=== PATIENT | male | born 1990 | race Caucasian/White ===

== ENCOUNTER 2017-05-17 06:37 | Emergency (ER) | payer OTHER ==
--- NOTE | 2017-05-17 07:33 | XR ---
EXAMINATION TYPE: XR chest 2V DATE OF EXAM: 05/17/2017 COMPARISON: 12/02/2012 INDICATION: Pain TECHNIQUE: Frontal and lateral views of the chest are obtained. FINDINGS: The heart size is normal. The pulmonary vasculature is normal. The lungs are clear. IMPRESSION: 1. No acute pulmonary process.
[2017-05-17] MEDS ORDERED: IPRATROPIUM-ALBUTEROL 3 ML NEB INHALATION STA (07:37)
[2017-05-17] MEDS ORDERED: methylPREDNISolone SOD SUCCI 125 MG/2 ML VIAL IM ONE (07:37)
--- NOTE | 2017-05-17 07:39 | ED ---
URI HPI - General Chief Complaint: Upper Respiratory Infection Stated Complaint: ÓSCAR Time Seen by Provider: 05/17/17 07:00 Source: patient, RN notes reviewed Mode of arrival: wheelchair Limitations: no limitations - History of Present Illness Initial Comments: 27-year-old male presents emergency from chief complaint cough congestion for the last 3-4 days. Patient states she has a history asthma is having to do shortness of breath. Patient states she is using his inhaler does get relief but shortly after wheezing returns. Patient states that he tried some over-the- counter cough and cold medication no relief. Patient states she is visiting from [place] currently. Patient states he has multiple sick contacts at home. Patient reports no fever no chills. Patient states that he just aches all over denies any nausea and diarrhea constipation. - Related Data Previous Rx's Medication Instructions Recorded Albuterol Inhaler [Ventolin Hfa 1 - 2 puff INHALATION Q4-6H PRN #1 11/21/13 Inhaler] inhaler Albuterol Nebulized [Ventolin 2.5 mg INHALATION Q4H PRN 10 Days 11/21/13 Nebulized] nebu predniSONE 60 mg PO DAILY 5 Days tab 11/21/13 Azithromycin [Zithromax Z-pack] 0 mg PO DIRECTED #1 pack 05/17/17 predniSONE 50 mg PO DAILY #5 tab 05/17/17 Allergies Allergy/AdvReac Type Severity Reaction Status Date / Time No Known Allergies Allergy Verified 06/21/13 19:10 Review of Systems ROS Statement: Those systems with pertinent positive or pertinent negative responses have been documented in the HPI. ROS Other: All systems not noted in ROS Statement are negative. Past Medical History Past Medical History: Asthma History of Any Multi-Drug Resistant Organisms: None Reported Past Surgical History: No Surgical Hx Reported Past Psychological History: No Psychological Hx Reported Smoking Status: Former smoker Past Alcohol Use History: Occasional Past Drug Use History: None Reported, Marijuana General Exam Limitations: no limitations General appearance: alert, in no apparent distress Head exam: Present: atraumatic, normocephalic, normal inspection Eye exam: Present: normal appearance, PERRL, EOMI. Absent: scleral icterus, conjunctival injection, periorbital swelling ENT exam: Present: mucous membranes moist, TM's normal bilaterally, normal external ear exam. Absent: normal oropharynx (Postnasal drainage) Neck exam: Present: normal inspection, full ROM. Absent: tenderness, meningismus, lymphadenopathy Respiratory exam: Present: wheezes. Absent: normal lung sounds bilaterally, respiratory distress, rales, rhonchi, stridor Cardiovascular Exam: Present: regular rate, normal rhythm, normal heart sounds. 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 Patient chest x- ray reviewed no acute abnormality. Patient's influenza is negative. Patient we treated for acute asthmatic bronchitis. Patient was given injection of Solu- Medrol, DuoNeb treatment. Patient be discharged on azithromycin, prednisone and continuation of albuterol inhaler. - Lab Data Lab Results 05/17/17 Range/Units 07:11 Influenza Type A RNA Not Detected (Not Detectd) Influenza Type B (PCR) Not Detected (Not Detectd) - EKG Data EKG Comments: EKG performed at 17:00 normal sinus rhythm with a rate of 87 OR 112 QRS 82 QT/ QTC 336/404 Disposition Clinical Impression: Asthmatic bronchitis Disposition: HOME SELF-CARE Condition: Stable Instructions: Bronchospasm (ED) Additional Instructions: Please return to the Emergency Department if symptoms worsen or any other concerns. Prescriptions: Azithromycin [Zithromax Z-pack] 0 mg PO DIRECTED #1 pack predniSONE 50 mg PO DAILY #5 tab Referrals: None,Stated [Primary Care Provider] - 1-2 days Time of Disposition: 07:41
[2017-05-17 08:03] VITALS: BP 149/83; PULSE 88; RESP 18; TEMP 98.1
== END 2017-05-17 08:02 | disposition home or self-care (01) ==
LOC: EC 06:37
DX: J45.909 Unspecified asthma, uncomplicated (principal); Z87.891 Personal history of nicotine dependence
CPT/HCPCS: 94640; 93005; 87502; 71046; 99284; 96372; J2930

== ENCOUNTER 2018-05-19 20:18 | Emergency (ER) | payer OTHER ==
[2018-05-19 20:43] VITALS: RESP 18; TEMP 98.5
[2018-05-19] MEDS ORDERED: ACETAMINOPHEN TAB 500 MG TAB PO STA (21:21)
[2018-05-19] MEDS ORDERED: IBUPROFEN 600 MG TAB PO STA (21:21)
[2018-05-19] MEDS ORDERED: predniSONE 50 MG TAB PO STA (21:21)
[2018-05-19] MEDS ORDERED: diphenhydrAMINE 50 MG CAP PO STA (21:21)
[2018-05-19] MEDS ORDERED: IPRATROPIUM-ALBUTEROL 3 ML NEB INHALATION STA (21:21)
--- NOTE | 2018-05-19 22:46 | ED ---
Headache HPI - General Mode of arrival: ambulatory Limitations: no limitations <Fina Hyatt - Last Filed: 05/20/18 03:08> <Mara Mathis - Last Filed: 05/20/18 07:20> - General Chief Complaint: Headache Stated Complaint: Migraines Time Seen by Provider: 05/19/18 21:07 - History of Present Illness Initial Comments: 28-year-old male patient presents to the emergency department today for evaluation of migraine headache. Patient states symptoms have been present since around noon. States that he does have history of migraine headache, they have been worsening in severity. Patient is also reporting new or congestion, drainage, and sore throat. Patient states his been going on for the last couple of months. Does have a history of hayfever and ALLERGIES but is not currently taking medications for this. He denies any blurred vision or double vision. States he does have light and sound sensitivity. Denies any nausea or vomiting. Denies any dizziness or weakness. Patient denies taking any medication for his symptoms. Patient denies any recent rash, fever, chills, cough, shortness breath, chest pain, abdominal pain, diarrhea, constipation, back pain, numbness, tingling, hematuria, dysuria, urinary urgency, urinary frequency, or any other complaints. (Fina Hyatt) - Related Data Previous Rx's Medication Instructions Recorded Albuterol Inhaler [Ventolin Hfa 1 - 2 puff INHALATION Q4-6H PRN #1 11/21/13 Inhaler] inhaler Albuterol Nebulized [Ventolin 2.5 mg INHALATION Q4H PRN 10 Days 11/21/13 Nebulized] nebu predniSONE 60 mg PO DAILY 5 Days tab 11/21/13 Azithromycin [Zithromax Z-pack] 0 mg PO DIRECTED #1 pack 05/17/17 predniSONE 50 mg PO DAILY #5 tab 05/17/17 Albuterol Sulfate [Proair Hfa] 1 - 2 puff INHALATION Q6HR PRN #1 05/19/18 inhaler predniSONE 50 mg PO DAILY #5 tablet 05/19/18 Allergies Allergy/AdvReac Type Severity Reaction Status Date / Time No Known Allergies Allergy Verified 06/21/13 19:10 Review of Systems ROS Other: All systems not noted in ROS Statement are negative. <Fina Hyatt - Last Filed: 05/20/18 03:08> ROS Other: All systems not noted in ROS Statement are negative. <Mara Mathis P - Last Filed: 05/20/18 07:20> ROS Statement: Those systems with pertinent positive or pertinent negative responses have been documented in the HPI. Past Medical History Past Medical History: Asthma History of Any Multi-Drug Resistant Organisms: None Reported Past Surgical History: No Surgical Hx Reported Past Psychological History: No Psychological Hx Reported Smoking Status: Current every day smoker Past Alcohol Use History: Occasional Past Drug Use History: Marijuana <Fina Hyatt M - Last Filed: 05/20/18 03:08> General Exam Limitations: no limitations General appearance: alert, in no apparent distress, other (This is a well-devel oped, well-nourished adult male patient in no acute distress. Vital signs upon presentation are temperature 98.5F, pulse 78, respirations 18, blood pressure 143/77, pulse ox 100% on room air.) Eye exam: Present: normal appearance, PERRL, EOMI. Absent: scleral icterus, conjunctival injection, nystagmus, periorbital swelling ENT exam: Present: normal exam, normal oropharynx, mucous membranes moist, TM's normal bilaterally Neck exam: Present: normal inspection. Absent: tenderness, meningismus, lymphadenopathy Respiratory exam: Present: normal lung sounds bilaterally. Absent: respiratory distress, wheezes, rales, rhonchi, stridor Cardiovascular Exam: Present: regular rate, normal rhythm, normal heart sounds. Absent: systolic murmur, diastolic murmur, rubs, gallop, clicks GI/Abdominal exam: Present: soft, normal bowel sounds. Absent: distended, tenderness, guarding, rebound, rigid Neurological exam: Present: alert, oriented X3, CN II-XII intact, other (Strength in all 4 extremities is 5/5.) Psychiatric exam: Present: normal affect, normal mood Skin exam: Present: warm, dry, intact, normal color. Absent: rash <Fina Hyatt M - Last Filed: 05/20/18 03:08> Course Vital Signs 05/19/18 05/19/18 05/19/18 20:39 21:56 22:05 Temperature 98.5 F Pulse Rate 78 80 72 Respiratory 18 Rate Blood Pressure 143/77 O2 Sat by Pulse 100 Oximetry 05/19/18 23:02 Temperature Pulse Rate 78 Respiratory 18 Rate Blood Pressure 132/87 O2 Sat by Pulse 98 Oximetry Medical Decision Making <Fina Hyatt - Last Filed: 05/20/18 03:08> <Mara Mathis - Last Filed: 05/20/18 07:20> - Medical Decision Making 28-year-old male patient presents to the emergency department today for evaluation of headache, nasal drainage, sore throat. Physical examination is unremarkable. Patient is neurologically intact with no focal deficits. Patient was given oral medications including Tylenol, Motrin, Benadryl, and prednisone. He also has history of asthma and did have wheezing upon examination so we did administer a DuoNeb breathing treatment. Upon reevaluation patient reports complete resolution of headache. States he is feeling better. He'll be discharged home at this time is a prescription for Pro Air inhaler as well as prednisone. He is instructed to follow-up with his primary care physician for recheck in 1-2 days. Return parameters were discussed in detail. He verbalizes understanding and agrees with this plan (Fina Hyatt) I was available for consultation in the emergency department. The history and physical exam were done by the midlevel provider. I was consulted for this patient's care. I reviewed the case with the midlevel provider and based on their presentation of the patient, I agree with the assessment, medical decision making and plan of care as documented. (Mara Mathis) Disposition Is patient prescribed a controlled substance at d/c from ED?: No Time of Disposition: 22:46 <Fina Hyatt - Last Filed: 05/20/18 03:08> <Mara Mathis - Last Filed: 05/20/18 07:20> Clinical Impression: Acute headache, Hayfever, Asthma Disposition: HOME SELF-CARE Condition: Good Instructions (If sedation given, give patient instructions): Asthma (ED), Acute Headache (ED) Additional Instructions: Take medications as directed. Consider using an [id number] Claritin or Zyrtec or the generic versions of these to aid with relief of ALLERGIES. Follow-up through primary care physician for recheck in 1-2 days. Return to the emergency department immediately for any new, worsening, or concerning symptoms. Prescriptions: predniSONE 50 mg PO DAILY #5 tablet Albuterol Sulfate [Proair Hfa] 1 - 2 puff INHALATION Q6HR PRN #1 inhaler PRN Reason: Shortness Of Breath Referrals: None,Stated [Primary Care Provider] - 1-2 days
[2018-05-19 23:04] VITALS: BP 132/87; PULSE 78
== END 2018-05-19 23:02 | disposition home or self-care (01) ==
LOC: EC 20:18
DX: J45.909 Unspecified asthma, uncomplicated (principal); R51 Headache; F17.200 Nicotine dependence, unspecified, uncomplicated; Z86.69 Personal history of other diseases of the nervous system and sense organs
CPT/HCPCS: 94640; 99283; J7512

== ENCOUNTER 2018-09-20 06:43 | Emergency (ER) | payer OTHER ==
[2018-09-20 06:51] VITALS: RESP 18
[2018-09-20] MEDS ORDERED: METOCLOPRAMIDE 5 MG/ML 2 ML VIAL IVP STA (07:00)
[2018-09-20] MEDS ORDERED: SODIUM CHLORIDE 0.9% 1,000 ML IV STA ×2 (07:00)
[2018-09-20] MEDS ORDERED: diphenhydrAMINE 50 MG/ML 1 ML VIAL IVP STA (07:00)
[2018-09-20] MEDS ORDERED: KETOROLAC 30 MG/ML 1 ML VIAL IVP STA (07:00)
--- NOTE | 2018-09-20 07:03 | ED ---
Headache HPI - General Chief Complaint: Headache Stated Complaint: Headache Time Seen by Provider: 09/20/18 06:52 Source: RN notes reviewed, old records reviewed Mode of arrival: ambulatory Limitations: no limitations - History of Present Illness Initial Comments: This is a 28-year-old male presents for his pharmacy today with complaints of migraine-like headache. Symptoms started 3 hours ago. Patient reports that he's had migraine headaches daily for the past few months. Patient states that he took some improvement today with no relief. Patient reports that he woke up with vomiting. Patient states he has had the similar migraines and usually causes him to have blurred vision. The headache starts behind the eyes, redness around the scalp into the head and neck. Patient has had no fevers or chills. He denies any cough chest pain or other symptoms. He did have one episode of vomiting. - Related Data Home Medications Medication Instructions Recorded Confirmed Albuterol Nebulized [Ventolin 2.5 mg INHALATION RT-Q6H PRN 09/20/18 09/20/18 Nebulized] Multivitamins, Thera [Multivitamin 1 tab PO DAILY 09/20/18 09/20/18 (formulary)] Previous Rx's Medication Instructions Recorded Ketorolac [Toradol] 10 mg PO Q6HR #12 tab 09/20/18 Metoclopramide [Reglan] 10 mg PO ACHS #12 tab 09/20/18 Allergies Allergy/AdvReac Type Severity Reaction Status Date / Time No Known Allergies Allergy Verified 09/20/18 08:06 Review of Systems ROS Statement: Those systems with pertinent positive or pertinent negative responses have been documented in the HPI. ROS Other: All systems not noted in ROS Statement are negative. Past Medical History Past Medical History: Asthma History of Any Multi-Drug Resistant Organisms: None Reported Past Surgical History: No Surgical Hx Reported Additional Past Surgical History / Comment(s): pylonidal cyst Past Psychological History: No Psychological Hx Reported Smoking Status: Current every day smoker Past Alcohol Use History: Rare Past Drug Use History: Marijuana General Exam - General Exam Comments Initial Comments: 28-year-old male. Alert and oriented 3. No distress. Limitations: no limitations General appearance: alert, in no apparent distress Head exam: Present: atraumatic, normocephalic, normal inspection Eye exam: Present: normal appearance, PERRL, EOMI. Absent: scleral icterus, conjunctival injection, periorbital swelling ENT exam: Present: normal exam, mucous membranes moist Neck exam: Present: normal inspection Respiratory exam: Present: normal lung sounds bilaterally. Absent: respiratory distress, wheezes, rales, rhonchi, stridor Cardiovascular Exam: Present: regular rate, normal rhythm, normal heart sounds. Absent: systolic murmur, diastolic murmur, rubs, gallop, clicks GI/Abdominal exam: Present: soft, normal bowel sounds. Absent: distended, tenderness, guarding, rebound, rigid Extremities exam: Present: normal inspection, full ROM, normal capillary refill. Absent: tenderness, pedal edema, joint swelling, calf tenderness Back exam: Present: normal inspection Neurological exam: Present: alert, oriented X3, CN II-XII intact Psychiatric exam: Present: normal affect, normal mood Skin exam: Present: warm, dry, intact, normal color. Absent: rash Course Vital Signs 09/20/18 06:47 Temperature 98.1 F Pulse Rate 57 L Respiratory 18 Rate Blood Pressure 116/72 O2 Sat by Pulse 99 Oximetry Medical Decision Making - Medical Decision Making 28-year-old male presents today for evaluation for migraine-like headache. He has no neurological deficits. Otherwise appears well. He did have some episodes of vomiting. Patient given IV fluids, given migraine cocktail. On reevaluation is feeling much better states his headache is a 0 out of 10. Patient has been advised to follow-up with primary care physician possible neurology if migraines continue to keep persisting. Patient understands treatment plan will comply. Return parameters were discussed. - Lab Data Result diagrams: 09/20/18 07:11 09/20/18 07:11 Lab Results 09/20/18 09/20/18 Range/Units 07:11 07:11 WBC 8.5 (3.8-10.6) k/uL RBC 4.78 (4.30-5.90) m/uL Hgb 13.3 (13.0-17.5) gm/dL Hct 41.2 (39.0-53.0) % MCV 86.1 (80.0-100.0) fL MCH 27.8 (25.0-35.0) pg MCHC 32.3 (31.0-37.0) g/dL RDW 13.9 (11.5-15.5) % Plt Count 234 (150-450) k/uL Neutrophils % 60 % Lymphocytes % 28 % Monocytes % 5 % Eosinophils % 5 % Basophils % 0 % Neutrophils # 5.1 (1.3-7.7) k/uL Lymphocytes # 2.4 (1.0-4.8) k/uL Monocytes # 0.4 (0-1.0) k/uL Eosinophils # 0.4 (0-0.7) k/uL Basophils # 0.0 (0-0.2) k/uL Sodium 140 (137-145) mmol/L Potassium 4.5 (3.5-5.1) mmol/L Chloride 105 (98-107) mmol/L Carbon Dioxide 27 (22-30) mmol/L Anion Gap 8 mmol/L BUN 11 (9-20) mg/dL Creatinine 0.88 (0.66-1.25) mg/dL Est GFR (CKD-EPI)AfAm >90 (>60 ml/min/1.73 sqM) Est GFR (CKD-EPI)NonAf >90 (>60 ml/min/1.73 sqM) Glucose 98 (74-99) mg/dL Calcium 9.5 (8.4-10.2) mg/dL Disposition Clinical Impression: Migraine Disposition: HOME SELF-CARE Condition: Good Instructions (If sedation given, give patient instructions): Acute Headache (ED) Additional Instructions: Patient advised to have close follow-up with primary care physicians in neurology. Take medications as prescribed. Return to the emergency department if any alarming signs or symptoms occur. Prescriptions: Metoclopramide [Reglan] 10 mg PO ACHS #12 tab Ketorolac [Toradol] 10 mg PO Q6HR #12 tab Is patient prescribed a controlled substance at d/c from ED?: No Referrals: None,Stated [Primary Care Provider] - 1-2 days Janay Molina MD [STAFF PHYSICIAN] - 1-2 days Toma Vivar MD [Medical Doctor] - 1-2 days Time of Disposition: 08:10
[2018-09-20 07:22] LABS: Basophils % (A) 0 %; Eosinophils # (A) 0.4 k/uL (0-0.7); Eosinophils % (A) 5 %; HCT 41.2 % (39.0-53.0); HGB 13.3 gm/dL (13.0-17.5); Lymphocytes # (A) 2.4 k/uL (1.0-4.8); Lymphocytes % (A) 28 %; MCH 27.8 pg (25.0-35.0); MCHC 32.3 g/dL (31.0-37.0); MCV 86.1 fL (80.0-100.0); Mean Platelet Volume 7.3; Monocytes # (A) 0.4 k/uL (0-1.0); Monocytes % (A) 5 %; Neutrophils # (A) 5.1 k/uL (1.3-7.7); Neutrophils % (A) 60 %; Platelet Count 234 k/uL (150-450); RBC 4.78 m/uL (4.30-5.90); RDW 13.9 % (11.5-15.5); WBC 8.5 k/uL (3.8-10.6)
[2018-09-20 07:37] LABS: African American GFR (CKD) >90 (>60 ml/min/1.73 sqM); Anion Gap 8 mmol/L; Blood Urea Nitrogen 11 mg/dL (9-20); Calcium 9.5 mg/dL (8.4-10.2); Carbon Dioxide 27 mmol/L (22-30); Chloride 105 mmol/L (98-107); Glucose 98 mg/dL (74-99); Potassium 4.5 mmol/L (3.5-5.1); Sodium 140 mmol/L (137-145)
[2018-09-20 08:24] VITALS: BP 115/70; PULSE 70; TEMP 98
== END 2018-09-20 08:23 | disposition home or self-care (01) ==
LOC: EC 06:43
DX: G43.909 Migraine, unspecified, not intractable, without status migrainosus (principal); J45.909 Unspecified asthma, uncomplicated; F17.200 Nicotine dependence, unspecified, uncomplicated
CPT/HCPCS: 36415; 80048; 85025; 99284; 96374; 96375 ×2; 96361; J1200; J2765; J1885

== ENCOUNTER 2018-09-21 07:13 | Emergency (ER) | payer OTHER ==
[2018-09-21 07:21] VITALS: RESP 16
--- NOTE | 2018-09-21 07:31 | ED ---
Headache HPI - General Chief Complaint: Headache Stated Complaint: headache Time Seen by Provider: 09/21/18 07:15 Mode of arrival: ambulatory Limitations: no limitations - History of Present Illness Initial Comments: 28yo male with history of migraines presenting for treatment of migraine. Patient states that since March he has had an increase in the frequency of migraines. He denies any specific life style changes or thoughts to cause of onset. Patient states that for the past month the headaches have been persistent near daily. He states that they cause nausea and on occasion vomiting. Patient denies today being the worst headache, but states that he has not been able to sleep since 1AM when it woke him up. Patinet states this was similar to yesterday morning when he was awoken by the headache at 3:30AM. Patient states that after treatment yesterday he felt great, and planned on following up with neurology and he has discussed with Chyna BEDOLLA an outpatient MRI. Patient denies fevers, neck stiffness, vision loss, ataxia, speech changes, sensation deficits or weakness. Remaining ROS (-) Upon arrival patient appears well there are no signs of acute distress. - Related Data Home Medications Medication Instructions Recorded Confirmed Albuterol Nebulized [Ventolin 2.5 mg INHALATION RT-Q6H PRN 09/20/18 09/20/18 Nebulized] Multivitamins, Thera [Multivitamin 1 tab PO DAILY 09/20/18 09/20/18 (formulary)] Previous Rx's Medication Instructions Recorded Ketorolac [Toradol] 10 mg PO Q6HR #12 tab 09/20/18 Metoclopramide [Reglan] 10 mg PO ACHS #12 tab 09/20/18 Allergies Allergy/AdvReac Type Severity Reaction Status Date / Time No Known Allergies Allergy Verified 09/21/18 07:21 Review of Systems ROS Statement: Those systems with pertinent positive or pertinent negative responses have been documented in the HPI. ROS Other: All systems not noted in ROS Statement are negative. Past Medical History Past Medical History: Asthma History of Any Multi-Drug Resistant Organisms: None Reported Past Surgical History: No Surgical Hx Reported Additional Past Surgical History / Comment(s): pylonidal cyst Past Psychological History: No Psychological Hx Reported Smoking Status: Current every day smoker Past Alcohol Use History: Rare Past Drug Use History: Marijuana General Exam - General Exam Comments Initial Comments: General: The patient is awake and alert, in no distress, and does not appear acutely ill. Eye: +3 mm pupils are equal, round and reactive to light, extra-ocular movements are intact. No nystagmus. There is normal conjunctiva bilaterally. No signs of icterus. Ears, nose, mouth and throat: There are moist mucous membranes and no oral lesions. Neck: The neck is supple, there is no tenderness or JVD. Cardiovascular: There is a regular rate and rhythm. No murmur, rub or gallop is appreciated. Respiratory: Lungs are clear to auscultation, respirations are non-labored, breath sounds are equal. No wheezes, stridor, rales, or rhonchi. Gastrointestinal: Soft, non-distended, non-tender abdomen without masses or organomegaly noted. There is no rebound or guarding present. Musculoskeletal: Normal ROM, no tenderness. Strength 5/5. Sensation intact. Pulses equal bilaterally 2+. Neurological: A&O x 3. CN II-XII intact, memory intact to immediately, inter mediate and signaling project engineer recall. Able to follow simple verbal. Able to name a common objects. High quality, labial and lingual speech. Low quality posterior pharynx/larynx (ga) voice sounds. Able to express general knowledge. No hemineglect or inattention noted. Finger agnosia (-) and spatially oriented (identified L index finger touched R shoulder with L index finger).Light touch sensation intact of the UE and LE b/l. No visible bulk atrophy, hypertrophy, fasciculations, or myoclonus of the UE or LE b/l. Full PROM in UE and LE b/l. Bilateral muscle strength 5/5 of the UE and LE b/l. Finger to nose, finger to the examiners finger, and heel to herndon coordinated and accurate b/l. Coordinated and even demonstration of hand flip, finger to thumb, and toe tap b/l. Gait is coordinated and even in stride with tandem, toe and heel walk. (-) pronator drift. No nuchal rigidity. Skin: Skin is warm and dry and no rashes or lesions are noted. Psychiatric: Cooperative, appropriate mood & affect, normal judgment. Limitations: no limitations Course Vital Signs 09/21/18 07:19 Temperature 97.9 F Pulse Rate 58 L Respiratory 16 Rate Blood Pressure 122/71 O2 Sat by Pulse 99 Oximetry Medical Decision Making - Medical Decision Making 28-year-old male presenting for headache. History of migraines. Patient states there has been increasing frequency for the past 9 months. Nighttime awakening for the past month. No focal neurological deficits. No nuchal irritation signs on exam. Given the patient history concern for possible mass. CT obtained at this time revealing no obvious mass, or acute intracranial process. Patient treated symptomatically at this time. On reevaluation patient headache subsided. I feel patient is stable for discharge without patient neurology f/u. Recommend outpatient MRI. Patient discharged appearing well. Patient is agreeable with this plan of care. Disposition Clinical Impression: Headache Disposition: HOME SELF-CARE Condition: Good Instructions (If sedation given, give patient instructions): Acute Headache (ED) Additional Instructions: Please use medication as discussed. Please follow-up with family doctor in the next 2 days, recommend neurology referral, outpatient MRI. Please return to emergency room if the symptoms increase or worsen or for any other concerns. Is patient prescribed a controlled substance at d/c from ED?: No Referrals: None,Stated [Primary Care Provider] - 1-2 days [facility] [NON-STAFF] - 1-2 days Time of Disposition: 08:53
--- NOTE | 2018-09-21 07:59 | CT ---
EXAMINATION TYPE: CT brain wo con DATE OF EXAM: 09/21/2018 COMPARISON: NONE HISTORY: Headache CT DLP: 1099.4 mGycm. Automated Exposure Control for Dose Reduction was Utilized. TECHNIQUE: CT scan of the head is performed without contrast. FINDINGS: There is no acute intracranial hemorrhage, mass effect, or midline shift identified. The ventricles and sulci are within normal limits in size. The globes are intact. Mild mucosal thickeni ng is seen in the left maxillary sinus and ethmoid sinuses. Remainder the paranasal sinuses and masto id air cells are well aerated. IMPRESSION: No acute intracranial hemorrhage, mass effect, or midline shift is seen.
[2018-09-21] MEDS ORDERED: ONDANSETRON 4 MG/2 ML VIAL IVP STA (08:01)
[2018-09-21] MEDS ORDERED: KETOROLAC 30 MG/ML 1 ML VIAL IVP STA (08:01)
[2018-09-21] MEDS ORDERED: diphenhydrAMINE 50 MG/ML 1 ML VIAL IVP STA (08:01)
[2018-09-21] MEDS ORDERED: SODIUM CHLORIDE 0.9% 1,000 ML IV ONE (08:01)
[2018-09-21] MEDS ORDERED: IBUPROFEN 800 MG TAB PO STA (08:19)
[2018-09-21 09:04] VITALS: BP 138/73; PULSE 76; TEMP 98
== END 2018-09-21 09:01 | disposition home or self-care (01) ==
LOC: EC 07:13
DX: R51 Headache (principal); R11.2 Nausea with vomiting, unspecified; J45.909 Unspecified asthma, uncomplicated; F17.200 Nicotine dependence, unspecified, uncomplicated; Z86.69 Personal history of other diseases of the nervous system and sense organs; Z53.20 Procedure and treatment not carried out because of patient's decision for unspecified reasons
CPT/HCPCS: 70450; 99283; 96374; 96375; 96361; J1200; J2405

== ENCOUNTER 2019-02-25 13:36 | Emergency (ER) | payer BC ==
[2019-02-25 13:52] VITALS: BP 126/73; PULSE 101; TEMP 99.6
--- NOTE | 2019-02-25 14:18 | ED ---
URI HPI - General Chief Complaint: Upper Respiratory Infection Stated Complaint: congestion/pink eye Time Seen by Provider: 02/25/19 14:00 Source: patient, RN notes reviewed Mode of arrival: ambulatory Limitations: no limitations - History of Present Illness Initial Comments: This is a 28-year-old male with a history of asthma states her last several days he's been having shortness of breath cough fevers chills rhinorrhea body aches and drainage from both eyes. He believes he has pinkeye. He states he coughs clear phlegm no overt chest pain no overt ear pain. No modifying factors this time. MD Complaint: fever, cough, sore throat, rhinorrhea, nasal congestion, other - Related Data Home Medications Medication Instructions Recorded Confirmed Albuterol Nebulized [Ventolin 2.5 mg INHALATION RT-Q6H PRN 09/20/18 09/20/18 Nebulized] Multivitamins, Thera [Multivitamin 1 tab PO DAILY 09/20/18 09/20/18 (formulary)] Previous Rx's Medication Instructions Recorded Ketorolac [Toradol] 10 mg PO Q6HR #12 tab 09/20/18 Metoclopramide [Reglan] 10 mg PO ACHS #12 tab 09/20/18 Amoxicillin/Potassium Clav 1 tab PO Q12HR #20 tab 02/25/19 [Augmentin 875-125 Tablet] Sulfacetamide 10% Ophth Soln 2 drops BOTH EYES Q8H 10 Days #3 ml 02/25/19 [Bleph-10] Allergies Allergy/AdvReac Type Severity Reaction Status Date / Time No Known Allergies Allergy Verified 02/25/19 13:51 Review of Systems ROS Statement: Those systems with pertinent positive or pertinent negative responses have been documented in the HPI. ROS Other: All systems not noted in ROS Statement are negative. Past Medical History Past Medical History: Asthma History of Any Multi-Drug Resistant Organisms: None Reported Past Surgical History: No Surgical Hx Reported Additional Past Surgical History / Comment(s): pylonidal cyst Past Psychological History: No Psychological Hx Reported Smoking Status: Current every day smoker Past Alcohol Use History: Rare Past Drug Use History: Marijuana General Exam - General Exam Comments Initial Comments: Pezzer well-developed well-nourished awake alert oriented times female Limitations: no limitations General appearance: alert, anxious Head exam: Present: atraumatic, normocephalic, normal inspection Eye exam: Present: PERRL, EOMI, conjunctival injection (Atenolol injection with exudate). Absent: scleral icterus, periorbital swelling ENT exam: Present: mucous membranes moist, other (Mild pharyngeal hyperemia no exudates) Neck exam: Present: normal inspection, full ROM, other ([place]). Absent: tenderness, meningismus, lymphadenopathy Respiratory exam: Present: normal lung sounds bilaterally. Absent: respiratory distress, wheezes, rales, rhonchi, stridor Cardiovascular Exam: Present: regular rate, normal rhythm, normal heart sounds. Absent: systolic murmur, diastolic murmur, rubs, gallop, clicks GI/Abdominal exam: Absent: distended, tenderness, guarding, rebound, rigid Extremities exam: Present: normal inspection, full ROM, normal capillary refill. Absent: tenderness, pedal edema, joint swelling, calf tenderness Back exam: Present: normal inspection Neurological exam: Present: alert, oriented X3, CN II-XII intact Psychiatric exam: Present: normal affect, normal mood Skin exam: Present: warm, dry, intact, normal color. Absent: rash Course Vital Signs 02/25/19 13:51 Temperature 99.6 F Pulse Rate 101 H Respiratory 18 Rate Blood Pressure 126/73 O2 Sat by Pulse 99 Oximetry Medical Decision Making - Medical Decision Making I did review the imaging and report no acute findings patient is negative for influenza at this time. The presentation consistent with sinusitis and conjunctivitis. Patient be placed on appropriate medication. Patient has been having asthma attacks but he states are controlled with his home medication. - Lab Data Lab Results 02/25/19 Range/Units Unknown Influenza Type A RNA Not Detected (Not Detectd) Influenza Type B (PCR) Not Detected (Not Detectd) - Radiology Data Radiology results: report reviewed (Imaging reviewed no acute findings.), image reviewed Disposition Clinical Impression: Keratoconjunctivitis, Sinusitis, Febrile illness, acute Disposition: HOME SELF-CARE Condition: Good Instructions (If sedation given, give patient instructions): Rhinosinusitis (ED), Conjunctivitis (ED), Fever in Adults (ED) Additional Instructions: Prescription sent to your preferred [facility] pharmacy Prescriptions: Amoxicillin/Potassium Clav [Augmentin 875-125 Tablet] 1 tab PO Q12HR #20 tab Sulfacetamide 10% Ophth Soln [Bleph-10] 2 drops BOTH EYES Q8H 10 Days #3 ml Is patient prescribed a controlled substance at d/c from ED?: No Referrals: None,Stated [Primary Care Provider] - 1-2 days
--- NOTE | 2019-02-25 14:34 | XR ---
EXAMINATION TYPE: XR chest 2V DATE OF EXAM: 02/25/2019 COMPARISON: Chest x-ray May 17, 2017. HISTORY: Cough and shortness of breath. TECHNIQUE: Frontal and lateral views of the chest are obtained. FINDINGS: Redemonstrated of azygos lobe/fissure. There is no suspicious new focal air space opacity, pleural effusion, or pneumothorax seen. The cardiac silhouette size is within normal limits. The o sseous structures are intact. IMPRESSION: No suspicious acute infiltrate. No significant change from prior.
[2019-02-25 16:00] VITALS: RESP 16
== END 2019-02-25 15:55 | disposition home or self-care (01) ==
LOC: EC 13:36
DX: J32.9 Chronic sinusitis, unspecified (principal); H16.203 Unspecified keratoconjunctivitis, bilateral; J45.909 Unspecified asthma, uncomplicated; F17.200 Nicotine dependence, unspecified, uncomplicated
CPT/HCPCS: 71046; 87502; 99283

== ENCOUNTER 2019-02-27 23:25 | Emergency (ER) | payer BC ==
[2019-02-27 23:30] VITALS: TEMP 98
[2019-02-28] MEDS ORDERED: VANCOMYCIN IV PER PHARMACY 1 EACH MISC MISCELLANE PRN (00:06)
[2019-02-28] MEDS ORDERED: AMPICILLIN-SULBACTAM 3 GM in SODIUM CHLORIDE 0.9% 100 ML IVPB STA (00:07)
[2019-02-28] MEDS ORDERED: SODIUM CHLORIDE 0.9% 1,000 ML IV STA (00:07)
[2019-02-28] MEDS ORDERED: VANCOMYCIN 1,750 MG in SODIUM CHLORIDE 0.9% 500 ML 500 ML IVPB STA (00:08)
[2019-02-28] MEDS ORDERED: valACYclovir 500 MG TAB PO STA (00:10)
[2019-02-28] MEDS ORDERED: MORPHINE SULFATE 4 MG/ML SYRINGE IV STA (00:33)
[2019-02-28 00:43] LABS: Basophils # (A) 0.3 k/uL (0-0.2); Basophils % (A) 3 %; Eosinophils # (A) 0.1 k/uL (0-0.7); Eosinophils % (A) 1 %; HCT 36.3 % (39.0-53.0); HGB 12.6 gm/dL (13.0-17.5); Lymphocytes % (A) 21 %; MCH 29.4 pg (25.0-35.0); MCHC 34.7 g/dL (31.0-37.0); MCV 84.6 fL (80.0-100.0); Mean Platelet Volume 8.5; Monocytes # (A) 0.7 k/uL (0-1.0); Monocytes % (A) 7 %; Neutrophils # (A) 6.2 k/uL (1.3-7.7); Neutrophils % (A) 66 %; Platelet Count 183 k/uL (150-450); RDW 13.2 % (11.5-15.5); WBC 9.5 k/uL (3.8-10.6)
[2019-02-28] MEDS ORDERED: PROPARACAINE 0.5% OPHTH DROPS 15 ML BTL BOTH EYES STA (00:43)
--- NOTE | 2019-02-28 00:45 | ED ---
General Adult HPI - General Source: patient, RN notes reviewed, old records reviewed Mode of arrival: ambulatory Limitations: no limitations <Lior Her - Last Filed: 02/28/19 03:14> <Norberto Bailey - Last Filed: 03/10/19 07:52> - General Chief complaint: Eye Problems Stated complaint: Eye Problems, revisit Time Seen by Provider: 02/27/19 23:32 - History of Present Illness Initial comments: 28-year-old male patient fully vaccinated no pertinent past with history presents ED for chief complaint of bilateral eye drainage redness which started on 02/25. Patient has been on antibiotic eyedrops as well as Augmentin and symptoms have not improved. Patient complains of erythema and drainage from eyes bilaterally. Significant amount discomfort. Sinus congestion and pressure. Mild cough. Fevers and chills at home. Nausea without emesis. Denies any other complaints. Systemic: Pt denies fatigue, fever/chills, rash. Pt denies weakness, night sweats, weight loss. Neuro: Pt denies headache, visual disturbances, syncope or pre-syncope. HEENT: Pt denies ocular discharge or irritation, otalgia, rhinorrhea, pharyngitis or notable lymphadenopathy. Cardiopulmonary: Pt denies chest pain, SOB, heart palpitations, dyspnea on exertion. Abdominal/GI: Pt denies abdominal pain, n/v/d. : Pt denies dysuria, burning w/ urination, frequency/urgency. Denies new onset urinary or bowel incontinence. MSK: Pt denies myalgia, loss of strength or function in extremities. Neuro: Pt denies new onset weakness, paresthesias. (Lior Her) - Related Data Home Medications Medication Instructions Recorded Confirmed Albuterol Nebulized [Ventolin 2.5 mg INHALATION RT-Q6H PRN 09/20/18 09/20/18 Nebulized] Multivitamins, Thera [Multivitamin 1 tab PO DAILY 09/20/18 09/20/18 (formulary)] Previous Rx's Medication Instructions Recorded Ketorolac [Toradol] 10 mg PO Q6HR #12 tab 09/20/18 Metoclopramide [Reglan] 10 mg PO ACHS #12 tab 09/20/18 Amoxicillin/Potassium Clav 1 tab PO Q12HR #20 tab 01/13/20 [Augmentin 875-125 Tablet] Sulfacetamide 10% Ophth Soln 2 drops BOTH EYES Q8H 10 Days #3 ml 02/25/19 [Bleph-10] Cephalexin [Keflex] 500 mg PO Q6HR 10 Days #40 cap 02/28/19 Hydrocodone/Acetaminophen [[place] 1 each PO Q6HR PRN 2 Days #8 tab 02/28/19 5-325] Sulfamethox-Tmp 800-160Mg [Bactrim 1 tab PO Q12HR #20 tab 02/28/19 DS 800-160 mg] Allergies Allergy/AdvReac Type Severity Reaction Status Date / Time No Known Allergies Allergy Verified 02/27/19 23:30 Review of Systems ROS Other: All systems not noted in ROS Statement are negative. <Lior Her - Last Filed: 02/28/19 03:14> ROS Other: All systems not noted in ROS Statement are negative. <Norberto Bailey - Last Filed: 03/10/19 07:52> ROS Statement: Those systems with pertinent positive or pertinent negative responses have been documented in the HPI. Past Medical History Past Medical History: Asthma History of Any Multi-Drug Resistant Organisms: None Reported Past Surgical History: No Surgical Hx Reported Additional Past Surgical History / Comment(s): pylonidal cyst Past Psychological History: No Psychological Hx Reported Smoking Status: Current every day smoker Past Alcohol Use History: Rare Past Drug Use History: Marijuana <Lior Her - Last Filed: 02/28/19 03:14> General Exam Limitations: no limitations <Lior Her - Last Filed: 02/28/19 03:14> - General Exam Comments Initial Comments: Constitutional: NAD, AOX3, Pt has pleasant affect. HEENT: NC/AT, trachea midline, neck supple, no lymphadenopathy. Posterior pharynx non erythematous, without exudates. External ears appear normal, without discharge. Mucous membranes moist. Eyes PERRLA, EOM intact. No pallor noted. Bilateral conjunctivitis with lash matting, new purulent drainage bilaterally. Injection to both eyes. Intraocular movements are intact. Intraocular pressure average of 17 bilaterally. First and stain did not reveal any abrasions or uptake. Slit-lamp exam revealed similar findings, anterior chambers clear. Visual acuity exam revealed decreased visual acuity however patient reports that this is baseline for him. States the vision is at baseline. Cardiopulmonary: RRR, no murmurs, rubs or gallops, no JVD noted. Lungs CTAB in anterior and posterior hsu. No peripheral edema. Abdominal exam: Abdomen soft and non-distended. Abdomen non-tender to palpation in all 4 quadrants. Bowel sounds active in LLQ. No hepatosplenomegaly. No ecchymosis Neuro: CN II-XII grossly intact. No nuchal rigidity. No raccon eyes, no mckeon sign, no hemotympanum. No cervical spinal tenderness. MSK: No posterior calf tenderness bilaterally, homans sign negative bilaterally. Posterior tibialis and radial pulse +2 bilaterally. Sensation intact in upper and lower extremities. Full active ROM in upper and lower extremities, 5/5 stregnth. Derm: Small blister lesion right maxillary region. Approximately 1 cm. No o ther rash noted. Spares palms and soles. (Lior Her) Course Vital Signs 02/27/19 02/28/19 02/28/19 23:27 01:39 03:40 Temperature 98.0 F Pulse Rate 84 82 76 Respiratory 20 18 18 Rate Blood Pressure 126/83 116/66 115/59 O2 Sat by Pulse 99 99 98 Oximetry Medical Decision Making - Lab Data Result diagrams: 02/28/19 00:30 02/28/19 00:30 <Lior Her - Last Filed: 02/28/19 03:14> - Lab Data Result diagrams: 02/28/19 00:30 02/28/19 00:30 <Norberto Bailey - Last Filed: 03/10/19 07:52> - Medical Decision Making 28-year-old male patient fully vaccinated no pertinent past with history presents ED for chief complaint of bilateral eye drainage redness which started on 02/25. Patient has been on antibiotic eyedrops as well as Augmentin and symptoms have not improved. Patient complains of erythema and drainage from eyes bilaterally. Significant amount discomfort. Sinus congestion and pressure. Mild cough. Fevers and chills at home. Nausea without emesis. Denies any other complaints. Patient vital signs are stable, afebrile. Physical exam displayed: Mucous membranes moist. Eyes PERRLA, EOM intact. No pallor noted. Bilateral conjunctivitis with lash matting, new purulent drainage bilaterally. Injection to both eyes. Intraocular movements are intact. Intraocular pressure average of 17 bilaterally. First and stain did not reveal any abrasions or uptake. Slit-lamp exam revealed similar findings, anterior chambers clear. Visual acuity exam revealed decreased visual acuity however p atient reports that this is baseline for him. States the vision is at baseline. Small blister lesion right maxillary region. Approximately 1 cm. No other rash noted. Spares palms and soles. Lymph investigations revealed hemoglobin of 12.6. No leukocytosis. Mild lactic acidosis of 2.2. Patient Ministry of fluid bolus. UA displayed trace ketones. +1 protein. Chest x-ray is negative. CT o rbits with contrast displayed preseptal soft tissue swelling on the right orbit. Subcutaneous edema and swelling of the lateral aspect of the zygoma. No sign of orbital mass. Case was discussed in depth with Dr. Verma who evaluated patient. He in turn discussed case with on-call off a mild chest Dr. Mc. He recommended discharge, outpatient follow-up tomorrow at 9 AM. Patient was initiated on vancomycin, Unasyn. As well as Bactrim for added MRSA coverage. Patient will be discharged with gentamicin ophthalmic solution. Bactrim for adequate MRSA coverage. Patient will continue on Augmentin. Return precautions were discussed. (Lior Her) I saw this patient in conjunction with the physician assistant men's soccer coach. I performed independent history and physical exam. Agree with case management. (Norberto Bailey) - Lab Data Lab Results 02/28/19 02/28/19 02/28/19 Range/Units 00:30 00:30 00:30 WBC 9.5 (3.8-10.6) k/uL RBC 4.30 (4.30-5.90) m/uL Hgb 12.6 L (13.0-17.5) gm/dL Hct 36.3 L (39.0-53.0) % MCV 84.6 (80.0-100.0) fL MCH 29.4 (25.0-35.0) pg MCHC 34.7 (31.0-37.0) g/dL RDW 13.2 (11.5-15.5) % Plt Count 183 (150-450) k/uL Neutrophils % 66 % Lymphocytes % 21 % Monocytes % 7 % Eosinophils % 1 % Basophils % 3 % Neutrophils # 6.2 (1.3-7.7) k/uL Lymphocytes # 2.0 (1.0-4.8) k/uL Monocytes # 0.7 (0-1.0) k/uL Eosinophils # 0.1 (0-0.7) k/uL Basophils # 0.3 H (0-0.2) k/uL Sodium 137 (137-145) mmol/L Potassium 3.5 (3.5-5.1) mmol/L Chloride 105 (98-107) mmol/L Carbon Dioxide 21 L (22-30) mmol/L Anion Gap 11 mmol/L BUN 13 (9-20) mg/dL Creatinine 0.76 (0.66-1.25) mg/dL Est GFR (CKD-EPI)AfAm >90 (>60 ml/min/1.73 sqM) Est GFR (CKD-EPI)NonAf >90 (>60 ml/min/1.73 sqM) Glucose 117 H (74-99) mg/dL Lactic Ac Sepsis Rflx Plasma Lactic Acid Chase 2.2 H* (0.7-2.0) mmol/L Calcium 8.9 (8.4-10.2) mg/dL Total Bilirubin 0.4 (0.2-1.3) mg/dL AST 29 (17-59) U/L ALT 22 (4-49) U/L Alkaline Phosphatase 60 (38-126) U/L Total Protein 7.2 (6.3-8.2) g/dL Albumin 4.2 (3.5-5.0) g/dL Urine Color Urine Appearance (Clear) Urine pH (5.0-8.0) Ur Specific [place] (1.001-1.035) Urine Protein (Negative) Urine Glucose (UA) (Negative) Urine Ketones (Negative) Urine Blood (Negative) Urine Nitrite (Negative) Urine Bilirubin (Negative) Urine Urobilinogen (<2.0) mg/dL Ur Leukocyte Esterase (Negative) Urine RBC (0-5) /hpf Urine WBC (0-5) /hpf Ur Squamous Epith Cells (0-4) /hpf Urine Mucus (None) /hpf 02/28/19 02/28/19 Range/Units 00:30 00:58 WBC (3.8-10.6) k/uL RBC (4.30-5.90) m/uL Hgb (13.0-17.5) gm/dL Hct (39.0-53.0) % MCV (80.0-100.0) fL MCH (25.0-35.0) pg MCHC (31.0-37.0) g/dL RDW (11.5-15.5) % Plt Count (150-450) k/uL Neutrophils % % Lymphocytes % % Monocytes % % Eosinophils % % Basophils % % Neutrophils # (1.3-7.7) k/uL Lymphocytes # (1.0-4.8) k/uL Monocytes # (0-1.0) k/uL Eosinophils # (0-0.7) k/uL Basophils # (0-0.2) k/uL Sodium (137-145) mmol/L Potassium (3.5-5.1) mmol/L Chloride (98-107) mmol/L Carbon Dioxide (22-30) mmol/L Anion Gap mmol/L BUN (9-20) mg/dL Creatinine (0.66-1.25) mg/dL Est GFR (CKD-EPI)AfAm (>60 ml/min/1.73 sqM) Est GFR (CKD-EPI)NonAf (>60 ml/min/1.73 sqM) Glucose (74-99) mg/dL Lactic Ac Sepsis Rflx Y Plasma Lactic Acid Chase (0.7-2.0) mmol/L Calcium (8.4-10.2) mg/dL Total Bilirubin (0.2-1.3) mg/dL AST (17-59) U/L ALT (4-49) U/L Alkaline Phosphatase (38-126) U/L Total Protein (6.3-8.2) g/dL Albumin (3.5-5.0) g/dL Urine Color Yellow Urine Appearance Clear (Clear) Urine pH 6.0 (5.0-8.0) Ur Specific [place] 1.044 H (1.001-1.035) Urine Protein 1+ H (Negative) Urine Glucose (UA) Negative (Negative) Urine Ketones Trace H (Negative) Urine Blood Negative (Negative) Urine Nitrite Negative (Negative) Urine Bilirubin Negative (Negative) Urine Urobilinogen 2.0 (<2.0) mg/dL Ur Leukocyte Esterase Negative (Negative) Urine RBC 2 (0-5) /hpf Urine WBC 1 (0-5) /hpf Ur Squamous Epith Cells <1 (0-4) /hpf Urine Mucus Many H (None) /hpf Disposition Is patient prescribed a controlled substance at d/c from ED?: Yes When asked, does pt state using other controlled substances?: No If prescribed controlled substance>3 days was MAPS reviewed?: Prescribed <3 Days If opioid is for acute pain is fill amount 7 days or less?: Yes If Rx opioid, was Start Talking consent form obtained?: Yes <Lior Her - Last Filed: 02/28/19 03:14> <Norberto Bailey - Last Filed: 03/10/19 07:52> Clinical Impression: Conjunctivitis, Preseptal cellulitis Disposition: HOME SELF-CARE Condition: Stable Instructions (If sedation given, give patient instructions): Periorbital Cellulitis in Adults (ED), Conjunctivitis (ED) Additional Instructions: Follow-up with Dr. Mc at his office at 9 AM tomorrow. He'll be expecting you. Use eye drops as directed. 2 drops in each eye every 4 hours. Stop taking the augmentin. Begin taking keflex every 6 hours for 10 days. Bactrim every 12 hours for 10 days. Return to ER if condition worsens or symptoms do not improve. Follow-up with primary care provider tomorrow as well. Prescriptions: Sulfamethox-Tmp 800-160Mg [Bactrim DS 800-160 mg] 1 tab PO Q12HR #20 tab Cephalexin [Keflex] 500 mg PO Q6HR 10 Days #40 cap Hydrocodone/Acetaminophen [[place] 5-325] 1 each PO Q6HR PRN 2 Days #8 tab PRN Reason: Pain Referrals: None,Stated [Primary Care Provider] - 1-2 days Connor Mc MD [STAFF PHYSICIAN] - 1-2 days
[2019-02-28 00:49] LABS: Appearance,Urine Clear (Clear); Bilirubin,Urine Negative (Negative); Blood,Urine Negative (Negative); Color,Urine Yellow; Glucose,Urine (UA) Negative (Negative); Ketones,Urine Trace (Negative); Leukocyte Esterase,Urine Negative (Negative); Mucus,Urine Many /hpf; Nitrite,Urine Negative (Negative); Protein,Urine 1+ (Negative); RBC,Urine 2 /hpf (0-5); Specific Gravity,Urine 1.044 (1.001-1.035); Squamous Epithelial Cell,Urine <1 /hpf (0-4); WBC,Urine 1 /hpf (0-5)
[2019-02-28 00:53] LABS: ALT 22 U/L (4-49); AST 29 U/L (17-59); African American GFR (CKD) >90 (>60 ml/min/1.73 sqM); Albumin 4.2 g/dL (3.5-5.0); Alkaline Phosphatase 60 U/L (38-126); Anion Gap 11 mmol/L; Blood Urea Nitrogen 13 mg/dL (9-20); Calcium 8.9 mg/dL (8.4-10.2); Carbon Dioxide 21 mmol/L (22-30); Chloride 105 mmol/L (98-107); Glucose 117 mg/dL (74-99); Non-African American GFR(CKD) >90 (>60 ml/min/1.73 sqM); Potassium 3.5 mmol/L (3.5-5.1); Sodium 137 mmol/L (137-145); Total Bilirubin 0.4 mg/dL (0.2-1.3); Total Protein 7.2 g/dL (6.3-8.2)
--- NOTE | 2019-02-28 00:56 | XR ---
EXAMINATION TYPE: XR chest 2V DATE OF EXAM: 02/28/2019 COMPARISON: 02/25/2019 HISTORY: Cough TECHNIQUE: 2 views FINDINGS: Heart and mediastinum are normal. Lungs are clear. Diaphragm is normal. Bony thorax appears normal. IMPRESSION: Normal chest. No change.
--- NOTE | 2019-02-28 01:12 | CT ---
EXAMINATION TYPE: CT orbits w con DATE OF EXAM: 02/28/2019 COMPARISON: None HISTORY: eye conjunctivitis CT DLP: 314.1 mGycm Automated exposure control for dose reduction was used. CONTRAST: Performed with IV Contrast, patient injected with 100 mL of Isovue 300. Multiple axial sections were obtained from the top of the frontal sinuses to the bottom of the maxill a with intravenous contrast. Nasal bone is intact. Maxillary sinuses appear normal. Zygomatic arches appear normal. There is no ev idence of retro-orbital mass. Maxilla is intact. There is preseptal soft tissue swelling at the right orbit. The globes are symmetric. There is subcut aneous edema on the lateral aspect of the zygomatic arches more on the right than the left. IMPRESSION: Preseptal soft tissue swelling around the right orbit. Subcutaneous edema and swelling on the lateral aspect of the zygoma. No evidence of orbital mass.
[2019-02-28 01:41] VITALS: RESP 18
[2019-02-28] MEDS ORDERED: GENTAMICIN 0.3% OPHTH DROPS 5 ML BTL BOTH EYES STA (02:57)
[2019-02-28] MEDS ORDERED: CEPHALEXIN 500MG STARTER PACK 4 CAP BTL PO STA (03:13)
--- NOTE | 2019-02-28 03:29 | ED ---
Medical Decision Making - Lab Data Result diagrams: 02/28/19 00:30 02/28/19 00:30 Lab Results 02/28/19 02/28/19 02/28/19 Range/Units 00:30 00:30 00:30 WBC 9.5 (3.8-10.6) k/uL RBC 4.30 (4.30-5.90) m/uL Hgb 12.6 L (13.0-17.5) gm/dL Hct 36.3 L (39.0-53.0) % MCV 84.6 (80.0-100.0) fL MCH 29.4 (25.0-35.0) pg MCHC 34.7 (31.0-37.0) g/dL RDW 13.2 (11.5-15.5) % Plt Count 183 (150-450) k/uL Neutrophils % 66 % Lymphocytes % 21 % Monocytes % 7 % Eosinophils % 1 % Basophils % 3 % Neutrophils # 6.2 (1.3-7.7) k/uL Lymphocytes # 2.0 (1.0-4.8) k/uL Monocytes # 0.7 (0-1.0) k/uL Eosinophils # 0.1 (0-0.7) k/uL Basophils # 0.3 H (0-0.2) k/uL Sodium 137 (137-145) mmol/L Potassium 3.5 (3.5-5.1) mmol/L Chloride 105 (98-107) mmol/L Carbon Dioxide 21 L (22-30) mmol/L Anion Gap 11 mmol/L BUN 13 (9-20) mg/dL Creatinine 0.76 (0.66-1.25) mg/dL Est GFR (CKD-EPI)AfAm >90 (>60 ml/min/1.73 sqM) Est GFR (CKD-EPI)NonAf >90 (>60 ml/min/1.73 sqM) Glucose 117 H (74-99) mg/dL Plasma Lactic Acid Chase 2.2 H* (0.7-2.0) mmol/L Calcium 8.9 (8.4-10.2) mg/dL Total Bilirubin 0.4 (0.2-1.3) mg/dL AST 29 (17-59) U/L ALT 22 (4-49) U/L Alkaline Phosphatase 60 (38-126) U/L Total Protein 7.2 (6.3-8.2) g/dL Albumin 4.2 (3.5-5.0) g/dL Urine Color Urine Appearance (Clear) Urine pH (5.0-8.0) Ur Specific [place] (1.001-1.035) Urine Protein (Negative) Urine Glucose (UA) (Negative) Urine Ketones (Negative) Urine Blood (Negative) Urine Nitrite (Negative) Urine Bilirubin (Negative) Urine Urobilinogen (<2.0) mg/dL Ur Leukocyte Esterase (Negative) Urine RBC (0-5) /hpf Urine WBC (0-5) /hpf Ur Squamous Epith Cells (0-4) /hpf Urine Mucus (None) /hpf 02/28/19 Range/Units 00:30 WBC (3.8-10.6) k/uL RBC (4.30-5.90) m/uL Hgb (13.0-17.5) gm/dL Hct (39.0-53.0) % MCV (80.0-100.0) fL MCH (25.0-35.0) pg MCHC (31.0-37.0) g/dL RDW (11.5-15.5) % Plt Count (150-450) k/uL Neutrophils % % Lymphocytes % % Monocytes % % Eosinophils % % Basophils % % Neutrophils # (1.3-7.7) k/uL Lymphocytes # (1.0-4.8) k/uL Monocytes # (0-1.0) k/uL Eosinophils # (0-0.7) k/uL Basophils # (0-0.2) k/uL Sodium (137-145) mmol/L Potassium (3.5-5.1) mmol/L Chloride (98-107) mmol/L Carbon Dioxide (22-30) mmol/L Anion Gap mmol/L BUN (9-20) mg/dL Creatinine (0.66-1.25) mg/dL Est GFR (CKD-EPI)AfAm (>60 ml/min/1.73 sqM) Est GFR (CKD-EPI)NonAf (>60 ml/min/1.73 sqM) Glucose (74-99) mg/dL Plasma Lactic Acid Chase (0.7-2.0) mmol/L Calcium (8.4-10.2) mg/dL Total Bilirubin (0.2-1.3) mg/dL AST (17-59) U/L ALT (4-49) U/L Alkaline Phosphatase (38-126) U/L Total Protein (6.3-8.2) g/dL Albumin (3.5-5.0) g/dL Urine Color Yellow Urine Appearance Clear (Clear) Urine pH 6.0 (5.0-8.0) Ur Specific [place] 1.044 H (1.001-1.035) Urine Protein 1+ H (Negative) Urine Glucose (UA) Negative (Negative) Urine Ketones Trace H (Negative) Urine Blood Negative (Negative) Urine Nitrite Negative (Negative) Urine Bilirubin Negative (Negative) Urine Urobilinogen 2.0 (<2.0) mg/dL Ur Leukocyte Esterase Negative (Negative) Urine RBC 2 (0-5) /hpf Urine WBC 1 (0-5) /hpf Ur Squamous Epith Cells <1 (0-4) /hpf Urine Mucus Many H (None) /hpf Disposition Clinical Impression: Conjunctivitis, Preseptal cellulitis Disposition: HOME SELF-CARE Condition: Stable Instructions (If sedation given, give patient instructions): Conjunctivitis (ED), Periorbital Cellulitis in Adults (ED) Additional Instructions: Follow-up with Dr. Mc at his office at 9 AM tomorrow. He'll be expecting you. Use eye drops as directed. 2 drops in each eye every 4 hours. Stop taking the augmentin. Begin taking keflex every 6 hours for 10 days. Bactrim every 12 hours for 10 days. Return to ER if condition worsens or symptoms do not improve. Follow-up with primary care provider tomorrow as well. Prescriptions: Sulfamethox-Tmp 800-160Mg [Bactrim DS 800-160 mg] 1 tab PO Q12HR #20 tab Cephalexin [Keflex] 500 mg PO Q6HR 10 Days #40 cap Hydrocodone/Acetaminophen [[place] 5-325] 1 each PO Q6HR PRN 2 Days #8 tab PRN Reason: Pain Is patient prescribed a controlled substance at d/c from ED?: Yes When asked, does pt state using other controlled substances?: No If prescribed controlled substance>3 days was MAPS reviewed?: Prescribed <3 Days If opioid is for acute pain is fill amount 7 days or less?: Yes If Rx opioid, was Start Talking consent form obtained?: Yes Referrals: Connor Mc MD [STAFF PHYSICIAN] - 1-2 days None,Stated [Primary Care Provider] - 1-2 days
[2019-02-28 03:41] VITALS: BP 115/59; PULSE 76
[2019-02-28] MEDS ORDERED: VANCOMYCIN 1,750 MG in SODIUM CHLORIDE 0.9% 500 ML 500 ML IVPB SCH (09:00)
== END 2019-02-28 03:41 | disposition home or self-care (01) ==
LOC: EC 23:25
DX: H10.9 Unspecified conjunctivitis (principal); L03.213 Periorbital cellulitis; E87.2 Acidosis; L98.8 Other specified disorders of the skin and subcutaneous tissue; R82.4 Acetonuria; R80.9 Proteinuria, unspecified; R09.81 Nasal congestion; R05 Cough; R11.0 Nausea; J45.909 Unspecified asthma, uncomplicated; F17.200 Nicotine dependence, unspecified, uncomplicated; Z79.899 Other long term (current) drug therapy
CPT/HCPCS: 36415; 80053; 83605; 85025; 81001; 71046; 70481; 99284; 96365; 96367; 96375; 96361; J3370; J2270; J0295; Q9967

== ENCOUNTER 2020-07-21 22:12 | Emergency (ER) | payer BC, OTHER ==
[2020-07-21 22:17] VITALS: BP 117/70; PULSE 75; RESP 16; TEMP 98
[2020-07-21] MEDS ORDERED: KETOROLAC 15 MG/ML 1 ML VIAL IM STA (22:51)
[2020-07-21] MEDS ORDERED: LIDOCAINE 1% INJ 10MG/ML (20 ML MDV) SQ ONE (22:51)
[2020-07-21] MEDS ORDERED: ACET/COD 300 MG/30 MG STARTER PACK 6 TAB BTL PO STA (22:51)
[2020-07-21] MEDS ORDERED: SULFAMETH-TMP DS STARTER PACK 2 TAB BTL PO STA (23:23)
--- NOTE | 2020-07-21 23:24 | ED ---
Skin/Abscess/FB HPI - General Chief complaint: Skin/Abscess/Foreign Body Stated complaint: Leg pain Time Seen by Provider: 07/21/20 22:18 Source: patient Mode of arrival: wheelchair Limitations: no limitations - History of Present Illness Initial comments: 30 year-old male patient presents to the emergency department for evaluation of laceration to the left thigh. States that she noticed the area about a week ago. States that it has become more swollen and painful. Denies any drainage. Denies any fever or chills. Denies nausea or vomiting. States he has had an abscess behind his right ear in the past. He denies any history of diabetes or IV drug use. - Related Data Previous Rx's Medication Instructions Recorded Ibuprofen [Motrin] 600 mg PO Q8HR PRN #30 tab 07/21/20 Sulfamethoxazole/Trimethoprim 1 each PO BID #20 tablet 07/21/20 [Bactrim DS 800-160 mg] Allergies Allergy/AdvReac Type Severity Reaction Status Date / Time No Known Allergies Allergy Verified 07/21/20 23:12 Review of Systems ROS Statement: Those systems with pertinent positive or pertinent negative responses have been documented in the HPI. ROS Other: All systems not noted in ROS Statement are negative. Past Medical History Past Medical History: Asthma History of Any Multi-Drug Resistant Organisms: None Reported Past Surgical History: No Surgical Hx Reported Additional Past Surgical History / Comment(s): pylonidal cyst Past Psychological History: No Psychological Hx Reported Smoking Status: Current every day smoker Past Alcohol Use History: Rare Past Drug Use History: Marijuana General Exam Limitations: no limitations General appearance: alert, in no apparent distress Respiratory exam: Present: normal lung sounds bilaterally. Absent: respiratory distress, wheezes, rales, rhonchi, stridor Cardiovascular Exam: Present: regular rate, normal rhythm, normal heart sounds. Absent: systolic murmur, diastolic murmur, rubs, gallop, clicks Extremities exam: Present: full ROM, normal capillary refill, other (3cm area of fluctuance with 2cm surrounding induration. Overlying erythema. - Consistent with abscess). Absent: tenderness, pedal edema, joint swelling, calf tenderness Neurological exam: Present: alert, oriented X3, CN II-XII intact Psychiatric exam: Present: normal affect, normal mood Skin exam: Present: warm, dry, intact, normal color. Absent: rash Course Vital Signs 07/21/20 22:13 Temperature 98 F Pulse Rate 75 Respiratory 16 Rate Blood Pressure 117/70 O2 Sat by Pulse 98 Oximetry Procedures - Incision & Drainage Consent Obtained: verbal consent Indication: abscess Site: lower extremity (left thigh) Size (cm): 3 Anesthetic Used: lidocaine 1% Amount (mLs): 3 I&D Cleaning Method: Betadine Scalpel Used: #11 I&D Drainage Obtained: Pus, Blood Culture Obtained?: Yes Patient Tolerated Procedure: well, no complications Medical Decision Making - Medical Decision Making 30-year-old male patient presents to the emergency department today for evaluation of abscess of left medial thigh. Physical examination did reveal 3 cm area of fluctuance with 2 cm surrounding induration. There is overlying erythema. This was incised and drained as documented. Wound culture sent. He is started on Bactrim. Instructed to apply warm compresses several times throughout the day. He is instructed to follow-up the primary care physician for recheck in 1-2 days. Return parameters discussed in detail. He verbalizes understanding and agrees with this plan. My attending is Dr. Srinivasan. Disposition Clinical Impression: Abscess of left thigh Disposition: HOME SELF-CARE Condition: Good Instructions (If sedation given, give patient instructions): Abscess Incision and Drainage (ED) Additional Instructions: Apply warm compresses to the area 4-5 times per day. Complete antibiotic prescription in full. Follow-up with primary care physician for recheck in 1-2 days. Return for any new, worsening, or concerning symptoms. Prescriptions: Sulfamethoxazole/Trimethoprim [Bactrim DS 800-160 mg] 1 each PO BID #20 tablet Ibuprofen [Motrin] 600 mg PO Q8HR PRN #30 tab PRN Reason: Pain Is patient prescribed a controlled substance at d/c from ED?: No Referrals: None,Stated [Primary Care Provider] - 1-2 days Time of Disposition: 23:24
== END 2020-07-21 23:33 | disposition home or self-care (01) ==
LOC: EC 22:12
DX: L02.416 Cutaneous abscess of left lower limb (principal); J45.909 Unspecified asthma, uncomplicated; F17.200 Nicotine dependence, unspecified, uncomplicated; F12.90 Cannabis use, unspecified, uncomplicated
CPT/HCPCS: 87070; 87205; 99283; 10060; 96372 ×2; J2001; J1885